=== PATIENT | female | born 1930 | race Caucasian/White ===

== ENCOUNTER → 2016-11-17 | Outpatient (CLI) | payer MEDICARE, OTHER ==
[2015-10-25 14:00] VITALS: BP 122/58
[~2016-11-17] MED LIST: ACET325T21 PO; ACET500T68 PO; ALBU2.5V14 NEB; ALBU8.5H6 IH; BENADRYL; BENZ100C PO; CALC300T4 PO; CLIN300C86 PO; COLD EEZE; CRAN1CAP3 PO; CROM26SP NS; DIPH25CA58 PO; ESOM20CA PO; ESOM40CA25 PO; FISH12002 PO; FLEC100T PO; FLEC150T PO; FLUT16SP2 NS; GUAI12003 PO; MECL25TA3 PO; METAMUCIL425 GM PO; METO25TA4 PO; MULT-208 PO; NITR0.4T SL; OLOP2.5D OP; OMEG1CAP30 PO; PHEN1SUP75 RC; SALT177A NS; SIMV10TA3 PO; WARF1TAB7 PO; WARF6TAB PO
[2016-11-17 10:09] LABS: CREATININE 0.9 mg/dL (0.6-1.0); GFR 59.5; POTASSIUM 4.6 mmol/L (3.5-5.1)
== END | disposition home or self-care (01) ==
LOC: LAB 09:18
PROVIDERS: ATTEND Internal Medicine Cardiovascular Disease
DX: I48.0 Paroxysmal atrial fibrillation (principal)
CPT/HCPCS: 36415; 80048; 83735

== ENCOUNTER → 2016-12-25 | Outpatient (CLI) | payer MEDICARE, OTHER ==
[2015-10-25 14:00] VITALS: BP 122/58
[~2016-12-25] MED LIST changes: +CLIN300C8 PO; -CLIN300C86 PO
[2016-12-25 14:27] LABS: FREE T4 1.14 ng/dL (0.76-1.46); THYROID STIM HORMONE (TSH) 1.061 uIU/mL (0.358-3.740)
== END | disposition home or self-care (01) ==
LOC: SPEC 10:49
PROVIDERS: ATTEND Internal Medicine Cardiovascular Disease
DX: I48.0 Paroxysmal atrial fibrillation (principal)
CPT/HCPCS: 84439; 84443

== ENCOUNTER → 2016-12-30 | Outpatient (CLI) | payer MEDICARE, OTHER ==
[2015-10-25 14:00] VITALS: BP 122/58
== END | disposition home or self-care (01) ==
LOC: LAB 21:50
PROVIDERS: ATTEND Specialist
DX: I48.91 Unspecified atrial fibrillation (principal)
CPT/HCPCS: 36415; 85610

== ENCOUNTER → 2017-01-20 | Outpatient (CLI) | payer MEDICARE, OTHER ==
[2015-10-25 14:00] VITALS: BP 122/58
[2017-01-20 06:47] LABS: ALBUMIN 3.2 g/dL (3.4-5.0); ALBUMIN/GLOBULIN RATIO 0.9 (1.0-1.7); CALCIUM 8.7 mg/dL (8.5-10.1); CREATININE 0.8 mg/dL (0.6-1.0); GFR 68.2; POTASSIUM 4.4 mmol/L (3.5-5.1); TOTAL BILIRUBIN 0.6 mg/dL (0.2-1.0); TOTAL PROTEIN 6.9 g/dL (6.4-8.2)
== END | disposition home or self-care (01) ==
LOC: SPEC 06:18
PROVIDERS: ATTEND Specialist
DX: E63.9 Nutritional deficiency, unspecified (principal); R79.89 Other specified abnormal findings of blood chemistry; R94.6 Abnormal results of thyroid function studies
CPT/HCPCS: 36415; 80053; 80061

== ENCOUNTER → 2017-03-17 | Outpatient (CLI) | payer MEDICARE, OTHER ==
[2015-10-25 14:00] VITALS: BP 122/58
--- NOTE | 2017-03-18 10:53 | RAD ---
DATE: 03/17/2017 EXAM: MAMMO BRADLY SCREENING BILATERAL Bilateral digital screening mammography to include digital breast tomosynthesis (3D mammography) HISTORY: Screening study. COMPARISON: 01/13/2016 This study was interpreted with the benefit of Computerized Aided Detection (CAD). FINDINGS: Digital MLO and CC mammograms of both breasts were obtained. Additionally digital breast tomosynthesis (3D mammography) images of both breasts in the MLO and CC projections were performed. Comparison study is dated 01/13/2016. The breast parenchyma is heterogeneously dense which can obscure a lesion on mammography (breast density code C). No spiculated mass is seen. No malignant appearing calcification or area of architectural distortion is noted. Benign-appearing calcifications are seen within both breasts, unchanged. Digital breast tomosynthesis images demonstrate no spiculated mass or malignant appearing calcification. Since the previous examination there has been no significant interval change. IMPRESSION: BI-RADS Category 1, negative. There is no mammographic evidence of malignancy. Routine yearly screening mammography is recommended for follow-up. BI-RADS CATEGORY: 1 NEGATIVE RECOMMENDED FOLLOW-UP: 12M 12 MONTH FOLLOW-UP PQRS compliance statement: Patient information was entered into a reminder system with a target due date 03/17/2018 for the next mammogram. Mammography is a sensitive method for finding small breast cancers, but it does not detect them all and is not a substitute for careful clinical examination. A negative mammogram does not negate a clinically suspicious finding and should not result in delay in biopsying a clinically suspicious abnormality. "Our facility is accredited by the [employer] Mammography [employer]."
== END | disposition home or self-care (01) ==
LOC: MAMMO 07:41
PROVIDERS: ATTEND Specialist
DX: Z12.31 Encounter for screening mammogram for malignant neoplasm of breast (principal); Z00.00 Encounter for general adult medical examination without abnormal findings
CPT/HCPCS: 77063; G0202; 77067

== ENCOUNTER → 2018-03-29 | Outpatient (CLI) | payer MEDICARE, OTHER ==
[2015-10-25 14:00] VITALS: BP 122/58
[~2018-03-29] MED LIST changes: +WARF1TAB69 PO; -WARF1TAB7 PO
--- NOTE | 2018-03-29 10:00 | RAD ---
DATE: 03/29/2018 EXAM: DIGITAL SCREEN BILAT W/CAD HISTORY: Routine screening COMPARISON: 03/17/2017 This study was interpreted with the benefit of Computerized Aided Detection (CAD). The breast parenchyma is heterogeneously dense, which could reduce sensitivity of mammography. Breast parenchyma level C. FINDINGS: No new or enlarging breast densities are seen. Benign type calcifications are present. No suspicious microcalcifications have developed. IMPRESSION: Stable mammograms without evidence of malignancy. BI-RADS CATEGORY: 2 BENIGN FINDING(S) RECOMMENDED FOLLOW-UP: 12M 12 MONTH FOLLOW-UP PQRS compliance statement: Patient information was entered into a reminder system with a target due date for the next mammogram. Mammography is a sensitive method for finding small breast cancers, but it does not detect them all and is not a substitute for careful clinical examination. A negative mammogram does not negate a clinically suspicious finding and should not result in delay in biopsying a clinically suspicious abnormality. "Our facility is accredited by the [employer] Mammography [employer]."
== END | disposition home or self-care (01) ==
LOC: MAMMO 08:05
PROVIDERS: ATTEND Specialist
DX: Z12.31 Encounter for screening mammogram for malignant neoplasm of breast (principal); I11.0 Hypertensive heart disease with heart failure; I50.23 Acute on chronic systolic (congestive) heart failure; I48.0 Paroxysmal atrial fibrillation; E78.5 Hyperlipidemia, unspecified; E78.00 Pure hypercholesterolemia, unspecified; Z86.718 Personal history of other venous thrombosis and embolism; Z87.891 Personal history of nicotine dependence; Z88.0 Allergy status to penicillin; Z88.1 Allergy status to other antibiotic agents; Z88.8 Allergy status to other drugs, medicaments and biological substances; Z88.5 Allergy status to narcotic agent; Z88.6 Allergy status to analgesic agent; Z80.3 Family history of malignant neoplasm of breast; Z82.3 Family history of stroke
CPT/HCPCS: 77067

== ENCOUNTER 2018-06-08 12:27 | Emergency (ER) | payer MEDICARE, OTHER ==
[~2018-06-08] VITALS: Ht 165.1 cm; Wt 80.9 kg
--- NOTE | 2018-06-08 12:57 | EKG ---
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
[2018-06-08 13:32] LABS: BASO % 0 % (0-3); EOS # 0.1 x10^3/uL (0.0-0.7); EOS % 1 % (0-3); HEMATOCRIT 45.3 % (36.0-47.0); HEMOGLOBIN 14.9 g/dL (12.0-15.5); LYMPH # 1.7 x10^3/uL (1.0-4.8); LYMPH % 24 % (24-48); MEAN CORPUSCULAR HEMOGLOBIN 27 pg (25-35); MEAN CORPUSCULAR HGB CONC 33 g/dL (31-37); MEAN CORPUSCULAR VOLUME 83 fL (79-100); MONO # 0.9 x10^3/uL (0.0-1.1); MONO % 12 % (0-9); NEUT # 4.4 x10^3uL (1.8-7.7); NEUT % 62 % (31-73); PLATELET COUNT 302 x10^3/uL (140-400); RED BLOOD COUNT 5.46 x10^6/uL (3.50-5.40); RED CELL DISTRIBUTION WIDTH 14.6 % (11.5-14.5); WHITE BLOOD COUNT 7.1 x10^3/uL (4.0-11.0)
[2018-06-08 14:09] LABS: ALBUMIN/GLOBULIN RATIO 0.8 (1.0-1.7); CALCIUM 8.9 mg/dL (8.5-10.1); GFR 52.6; POTASSIUM 4.1 mmol/L (3.5-5.1); TOTAL BILIRUBIN 0.5 mg/dL (0.2-1.0); TOTAL PROTEIN 6.7 g/dL (6.4-8.2)
--- NOTE | 2018-06-08 14:34 | PHYS DOC ---
Past History Past Medical History: A-Fib, CHF, DVT, GERD, Heart Disease, URI, Other Past Surgical History: Other Alcohol Use: None Drug Use: None Adult General Chief Complaint Chief Complaint: RAPID HEART RATE HPI HPI Patient is a 87 year old female with history of atrial fibrillation who presents with complaining of rapid heart rate started on his prior to arrival. Patient complaining of nausea and mild dizziness without chest pain or shortness of breath like her previous episodes of atrial fibrillation. Patient states she was seen by her grill attendant yesterday and change of her metoprolol and didn't take any today. Patient states she had 50 mg Toprol prior to arrival to ER. She denies recent dehydration, vomiting, fever and chills, cough and congestion. Review of Systems Review of Systems Constitutional: Denies fever or chills [] Eyes: Denies change in visual acuity, redness, or eye pain [] HENT: Denies nasal congestion or sore throat [] Respiratory: Denies cough or shortness of breath [] Cardiovascular: No additional information not addressed in HPI [] GI: Denies abdominal pain, nausea, vomiting, bloody stools or diarrhea [] : Denies dysuria or hematuria [] Musculoskeletal: Denies back pain or joint pain [] Integument: Denies rash or skin lesions [] Neurologic: Denies headache, focal weakness or sensory changes [] Endocrine: Denies polyuria or polydipsia [] All other systems were reviewed and found to be within normal limits, except as documented in this note. Allergies Allergies Allergies Coded Allergies Type Severity Reaction Last Updated Verified Penicillins Allergy Severe Hives 10/18/15 Yes Iodinated Contrast- Oral and IV Dye Allergy Intermediate Hives 10/18/15 Yes alendronate sodium Allergy Intermediate 10/21/15 No atenolol Allergy Intermediate 07/06/14 No diltiazem Allergy Intermediate Rash 10/18/15 Yes dronedarone Allergy Intermediate 10/21/15 No erythromycin base Allergy Intermediate Rash 10/18/15 No fluticasone Allergy Intermediate 10/21/15 No indomethacin Allergy Intermediate 10/21/15 No nebivolol Allergy Intermediate 07/06/14 No ondansetron Allergy Intermediate 10/21/15 No salmeterol Allergy Intermediate 10/21/15 No tetracycline Allergy Intermediate Rash 10/18/15 No zolpidem Allergy Intermediate 10/21/15 No amiodarone Adverse Reaction Intermediate 10/21/15 No aspirin Adverse Reaction Intermediate 10/21/15 No Uncoded Allergies Type Severity Reaction Last Updated Verified onions Allergy Unknown 07/06/14 Physical Exam Physical Exam Constitutional: Well developed, well nourished, mild distress, non-toxic appearance. [] HENT: Normocephalic, atraumatic Eyes: PERRLA, EOMI, conjunctiva normal, no discharge. [] Neck: Normal range of motion, no tenderness, supple, no stridor. [] Cardiovascular: Irregularly irregular rhythm with tachycardia, no murmur [] Lungs & Thorax: Bilateral breath sounds clear to auscultation [] Abdomen: Bowel sounds normal, soft, no tenderness, no masses, no pulsatile masses. [] Skin: Warm, dry, no erythema, no rash. [] Back: No tenderness, no CVA tenderness. [] Extremities: No tenderness, no cyanosis, no clubbing, ROM intact, no edema. [] Neurologic: Alert and oriented X 3, normal motor function, normal sensory function, no focal deficits noted. [] Psychologic: Affect normal, judgement normal, mood normal. [] Current Patient Data Vital Signs Vital Signs Date Time Temp Pulse Resp B/P (MAP) Pulse Ox O2 Delivery O2 Flow Rate FiO2 06/08/18 13:25 86 18 145/64 (91) 94 Room Air 06/08/18 12:42 97.8 Lab Results Laboratory Tests Test 06/08/18 13:05 06/08/18 13:34 White Blood Count 7.1 x10^3/uL (4.0-11.0) Red Blood Count 5.46 x10^6/uL (3.50-5.40) H Hemoglobin 14.9 g/dL (12.0-15.5) Hematocrit 45.3 % (36.0-47.0) Mean Corpuscular Volume 83 fL (79-100) Mean Corpuscular Hemoglobin 27 pg (25-35) Mean Corpuscular Hemoglobin Concent 33 g/dL (31-37) Red Cell Distribution Width 14.6 % (11.5-14.5) H Platelet Count 302 x10^3/uL (140-400) Neutrophils (%) (Auto) 62 % (31-73) Lymphocytes (%) (Auto) 24 % (24-48) Monocytes (%) (Auto) 12 % (0-9) H Eosinophils (%) (Auto) 1 % (0-3) Basophils (%) (Auto) 0 % (0-3) Neutrophils # (Auto) 4.4 x10^3uL (1.8-7.7) Lymphocytes # (Auto) 1.7 x10^3/uL (1.0-4.8) Monocytes # (Auto) 0.9 x10^3/uL (0.0-1.1) Eosinophils # (Auto) 0.1 x10^3/uL (0.0-0.7) Basophils # (Auto) 0.0 x10^3/uL (0.0-0.2) Prothrombin Time 23.8 SEC (9.4-11.4) H Prothrombin Time INR 2.5 (0.9-1.1) H Troponin I Quantitative < 0.017 ng/mL (0-0.055) Sodium Level 136 mmol/L (136-145) Potassium Level 4.1 mmol/L (3.5-5.1) Chloride Level 101 mmol/L (98-107) Carbon Dioxide Level 27 mmol/L (21-32) Anion Gap 8 (6-14) Blood Urea Nitrogen 21 mg/dL (7-20) H Creatinine 1.0 mg/dL (0.6-1.0) Estimated GFR (Cockcroft-Gault) 52.6 BUN/Creatinine Ratio 21 (6-20) H Glucose Level 106 mg/dL (70-99) H Calcium Level 8.9 mg/dL (8.5-10.1) Total Bilirubin 0.5 mg/dL (0.2-1.0) Aspartate Amino Transferase (AST) 25 U/L (15-37) Alanine Aminotransferase (ALT) 24 U/L (14-59) Alkaline Phosphatase 85 U/L (46-116) GG-Vxw-K-Type Natriuretic Peptide 690 pg/mL (0-449) H Total Protein 6.7 g/dL (6.4-8.2) Albumin 3.0 g/dL (3.4-5.0) L Albumin/Globulin Ratio 0.8 (1.0-1.7) L EKG EKG EKG interpreted by me. EKG at 1241 showed atrial fibrillation with RVR at rate of 132, poor R-wave progress in lateral septal leads, no acute ST and T-wave abnormalities. Radiology/Procedures Radiology/Procedures [address] [address] IMAGING REPORT Signed PATIENT: RANCHO REMY ACCOUNT: [id number] : 1930 LOCATION: ER AGE: 87 SEX: F EXAM STATUS: REG ER ORD. PHYSICIAN: SHELLEY MARY MD REASON: palpitation PROCEDURE: PORTABLE CHEST 1V Exam: AP portable chest History: Tachycardia for one day. Comparison: October 24, 2015. Findings: Cardiac silhouette appears within normal limits for size. Aortic atherosclerosis is seen. Right lung appears clear. No pneumothorax identified. There is thought to be enlarged left pericardial fat pad. Pulmonary vascular distribution is seen. Impression: 1. Pulmonary vascular congestion. Electronically signed by: Negro Quintanilla MD (06/08/2018 2:33 PM) [place] [id number] DICTATED AND SIGNED BY: NEGRO QUINTANILLA MD DATE: 06/08/18 1431 CC: SHELLEY MARY MD; DANUTA PANCHAL MD ~ Course & Med Decision Making Course & Med Decision Making Pertinent Labs and Imaging studies reviewed. (See chart for details) Evaluation of patient in ER showed 87-year-old female patient with history of atrial fibrillation and complaining of palpitation. Patient had atrial flutter patient with RVR at rate of 127 at arrival to ER that is spontaneously converted to sinus rhythm at rate of 80s. Labs did not show any acute finding. Patient psychiatric to follow up with her grill attendant and take her home medication and in case of palpitation take one extra pill of metoprolol. Dragon Disclaimer Dragon Disclaimer This electronic medical record was generated, in whole or in part, using a voice recognition dictation system. Departure Departure: Impression: Primary Impression: Atrial fibrillation with RVR Disposition: HOME, SELF-CARE (at 1433) Referrals: DANUTA PANCHAL MD (PCP) Patient Instructions: Atrial Fibrillation Additional Instructions: Continue home medication If having palpitation may take one extra pill of metoprolol Follow-up with your primary care physician in 3-5 days Return to ER if not getting better SHELLEY MARY MD Jun 08, 2018 14:34
[2018-06-08 14:54] VITALS: BP 144/78
== END 2018-06-08 14:56 | disposition home or self-care (01) ==
LOC: ER 12:27
DX: I48.0 Paroxysmal atrial fibrillation (principal); I50.9 Heart failure, unspecified; K21.9 Gastro-esophageal reflux disease without esophagitis; Z86.718 Personal history of other venous thrombosis and embolism; Z88.0 Allergy status to penicillin; Z91.041 Radiographic dye allergy status; Z88.8 Allergy status to other drugs, medicaments and biological substances; Z88.6 Allergy status to analgesic agent; Z88.1 Allergy status to other antibiotic agents
CPT/HCPCS: 36415; 71045; 80053; 83880; 84484; 85025; 85610; 93005; 99285

== ENCOUNTER 2018-10-10 15:44 | Emergency (ER) | payer MEDICARE, OTHER ==
[~2018-10-10] VITALS: Ht 165.1 cm; Wt 81.6 kg
[2018-10-10 16:29] LABS: BASO # 0.1 x10^3/uL (0.0-0.2); BASO % 1 % (0-3); EOS # 0.1 x10^3/uL (0.0-0.7); EOS % 2 % (0-3); HEMATOCRIT 43.6 % (36.0-47.0); HEMOGLOBIN 14.1 g/dL (12.0-15.5); LYMPH # 1.9 x10^3/uL (1.0-4.8); LYMPH % 29 % (24-48); MEAN CORPUSCULAR HEMOGLOBIN 26 pg (25-35); MEAN CORPUSCULAR HGB CONC 32 g/dL (31-37); MEAN CORPUSCULAR VOLUME 82 fL (79-100); MONO # 0.8 x10^3/uL (0.0-1.1); MONO % 11 % (0-9); NEUT # 3.8 x10^3uL (1.8-7.7); NEUT % 57 % (31-73); PLATELET COUNT 280 x10^3/uL (140-400); RED BLOOD COUNT 5.35 x10^6/uL (3.50-5.40); RED CELL DISTRIBUTION WIDTH 14.4 % (11.5-14.5); WHITE BLOOD COUNT 6.7 x10^3/uL (4.0-11.0)
--- NOTE | 2018-10-10 16:30 | PHYS DOC ---
Past History Past Medical History: A-Fib, CHF, DVT, GERD, Heart Disease, URI, Other Past Surgical History: Other Alcohol Use: None Drug Use: None Adult General Chief Complaint Chief Complaint: RAPID HEART RATE HPI HPI 87-year-old female presents with palpitations. Patient has known atrial fibrillation. When she has uncontrolled rate, she can feel it. The patient has a plan where she takes 25 mg of metoprolol when her A. fib starts. In one hour 8 usually goes back to normal. The patient followed this protocol today, but after an hour she had not slowed down. Her PCP advised that she come to the emergency room. On arrival to the emergency room the patient's heart rate had slowed to 86 and was sinus. The patient is feeling better at this time. She denies previously feeling ill for her A. fib started. She has no other complaints. Review of Systems Review of Systems Constitutional: Denies fever or chills [] Eyes: Denies change in visual acuity, redness, or eye pain [] HENT: Denies nasal congestion or sore throat [] Respiratory: Denies cough or shortness of breath [] Cardiovascular: No additional information not addressed in HPI [] GI: Denies abdominal pain, nausea, vomiting, bloody stools or diarrhea [] : Denies dysuria or hematuria [] Musculoskeletal: Denies back pain or joint pain [] Integument: Denies rash or skin lesions [] Neurologic: Denies headache, focal weakness or sensory changes [] Endocrine: Denies polyuria or polydipsia [] All other systems were reviewed and found to be within normal limits, except as documented in this note. Allergies Allergies Allergies Coded Allergies Type Severity Reaction Last Updated Verified Penicillins Allergy Severe Hives 10/18/15 Yes Iodinated Contrast- Oral and IV Dye Allergy Intermediate Hives 10/18/15 Yes alendronate sodium Allergy Intermediate 10/21/15 No atenolol Allergy Intermediate 07/06/14 No diltiazem Allergy Intermediate Rash 10/18/15 Yes dronedarone Allergy Intermediate 10/21/15 No erythromycin base Allergy Intermediate Rash 10/18/15 No fluticasone Allergy Intermediate 10/21/15 No indomethacin Allergy Intermediate 10/21/15 No nebivolol Allergy Intermediate 07/06/14 No ondansetron Allergy Intermediate 10/21/15 No salmeterol Allergy Intermediate 10/21/15 No tetracycline Allergy Intermediate Rash 10/18/15 No zolpidem Allergy Intermediate 10/21/15 No Sulfa (Sulfonamide Antibiotics) Allergy Unknown 10/10/18 Yes hydrochlorothiazide Allergy Unknown 10/10/18 Yes lansoprazole Allergy Unknown 10/10/18 Yes risedronate sodium Allergy Unknown 10/10/18 Yes amiodarone Adverse Reaction Intermediate 10/21/15 No aspirin Adverse Reaction Intermediate 10/21/15 No Uncoded Allergies Type Severity Reaction Last Updated Verified ZEPHREX Allergy Unknown 10/10/18 onions Allergy Unknown 07/06/14 Physical Exam Physical Exam Constitutional: Well developed, well nourished, no acute distress, non-toxic appearance. [] HENT: Normocephalic, atraumatic, bilateral external ears normal, oropharynx moist, no oral exudates, nose normal. [] Eyes: PERRLA, EOMI, conjunctiva normal, no discharge. [] Neck: Normal range of motion, no tenderness, supple, no stridor. [] Cardiovascular:Heart rate regular rhythm, no murmur [] Lungs & Thorax: Bilateral breath sounds clear to auscultation [] Abdomen: Bowel sounds normal, soft, no tenderness, no masses, no pulsatile masses. [] Skin: Warm, dry, no erythema, no rash. [] Back: No tenderness, no CVA tenderness. [] Extremities: No tenderness, no cyanosis, no clubbing, ROM intact, no edema. [] Neurologic: Alert and oriented X 3, normal motor function, normal sensory function, no focal deficits noted. [] Psychologic: Affect normal, judgement normal, mood normal. [] EKG EKG Sinus rhythm, rate 86, prolonged PA interval, no ST elevations or depressions.[] Radiology/Procedures Radiology/Procedures [] Course & Med Decision Making Course & Med Decision Making Pertinent Labs and Imaging studies reviewed. (See chart for details) The patient is a prolonged PA interval but her EKG is otherwise unremarkable. She is in sinus rhythm. I will order labs to rule out infection as a trigger for her A. fib. The patient's urinalysis is negative for nitrate and only trace for leukocyte esterase. She does have many bacteria but few white cells. The patient is asymptomatic. I will not treat her for UTI. Her heart rate is maintained sinus rhythm. She is stable for discharge at this time. [] Dragon Disclaimer Dragon Disclaimer This electronic medical record was generated, in whole or in part, using a voice recognition dictation system. Departure Departure: Impression: Primary Impression: Atrial fibrillation with RVR Disposition: HOME, SELF-CARE Condition: STABLE Referrals: DANUTA PANCHAL MD (PCP) Patient Instructions: Atrial Fibrillation, [id number] LORRAINE RICCI DO Oct 10, 2018 16:30
[2018-10-10 17:20] LABS: ALBUMIN 3.1 g/dL (3.4-5.0); ALBUMIN/GLOBULIN RATIO 0.8 (1.0-1.7); CALCIUM 9.1 mg/dL (8.5-10.1); CREATININE 1.1 mg/dL (0.6-1.0); GFR 47.1; POTASSIUM 4.7 mmol/L (3.5-5.1); TOTAL BILIRUBIN 0.4 mg/dL (0.2-1.0)
[2018-10-10 17:30] LABS: BILIRUBIN,URINE NEG (NEG); CLARITY,URINE CLEAR; COLOR,URINE YELLOW; GLUCOSE,URINE NEG (NEG)
[2018-10-10 17:31] LABS: BACTERIA,URINE MANY /HPF (0-FEW); NITRITE,URINE NEG (NEG); RBC,URINE RARE /HPF (0-2); UROBILINOGEN,URINE 0.2 mg/dL (0.2 mg/dL)
[2018-10-10 17:51] VITALS: BP 157/62
--- NOTE | 2018-10-11 12:33 | EKG ---
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
== END 2018-10-10 17:55 | disposition home or self-care (01) ==
LOC: ER 15:44
DX: I48.2 Chronic atrial fibrillation (principal); I50.9 Heart failure, unspecified; K21.9 Gastro-esophageal reflux disease without esophagitis; Z86.718 Personal history of other venous thrombosis and embolism; Z91.041 Radiographic dye allergy status; Z88.0 Allergy status to penicillin; Z88.2 Allergy status to sulfonamides; Z88.8 Allergy status to other drugs, medicaments and biological substances; Z88.6 Allergy status to analgesic agent; Z88.1 Allergy status to other antibiotic agents
CPT/HCPCS: 36415; 80053; 81001; 85025; 87086; 87186; 93005; 99284

== ENCOUNTER 2018-11-11 15:13 | Inpatient (IN) | payer MEDICARE, OTHER ==
[~2018-11-11] VITALS: Ht 165.1 cm; Wt 83.1 kg
[2018-11-11] MEDS ORDERED: METOPROLOL TARTRATE 5 MG/5 ML VIAL. IV ONE ×3 (15:30→16:15)
--- NOTE | 2018-11-11 15:44 | PHYS DOC ---
Past History Past Medical History: A-Fib, CHF, DVT, GERD, High Cholesterol, Other Past Surgical History: Other Alcohol Use: None Drug Use: None Adult General Chief Complaint Chief Complaint: RAPID HEART RATE HPI HPI 88-year-old female presents with rapid heart beat. Patient has known atrial fibrillation which is controlled with beta yann. Around 1300 today, she began to feel that she had rapid heartbeat. She has been told to take extra dose of her metoprolol when this happens. She didn't do this, but her heart rate is not slow down. She took this dose at least 1 hour prior to arrival. She denies chest pain or shortness of breath. She has no other complaints at this time. Review of Systems Review of Systems Constitutional: Denies fever or chills [] Eyes: Denies change in visual acuity, redness, or eye pain [] HENT: Denies nasal congestion or sore throat [] Respiratory: Denies cough or shortness of breath [] Cardiovascular: No additional information not addressed in HPI [] GI: Denies abdominal pain, nausea, vomiting, bloody stools or diarrhea [] : Denies dysuria or hematuria [] Musculoskeletal: Denies back pain or joint pain [] Integument: Denies rash or skin lesions [] Neurologic: Denies headache, focal weakness or sensory changes [] Endocrine: Denies polyuria or polydipsia [] All other systems were reviewed and found to be within normal limits, except as documented in this note. Current Medications Current Medications Current Medications Medications (Trade) Dose Ordered Sig/Rose Start Time Stop Time Status Last Admin Dose Admin Metoprolol Tartrate (Lopressor Vial) 5 mg 1X ONCE 11/11/18 15:30 11/11/18 15:31 DC 11/11/18 15:35 5 MG Allergies Allergies Allergies Coded Allergies Type Severity Reaction Last Updated Verified Penicillins Allergy Severe Hives 10/18/15 Yes Iodinated Contrast- Oral and IV Dye Allergy Intermediate Hives 10/18/15 Yes Sulfa (Sulfonamide Antibiotics) Allergy Intermediate 10/10/18 Yes alendronate sodium Allergy Intermediate 10/21/15 No atenolol Allergy Intermediate 07/06/14 No diltiazem Allergy Intermediate Rash 10/18/15 Yes dronedarone Allergy Intermediate 10/21/15 No erythromycin base Allergy Intermediate Rash 10/18/15 No fluticasone Allergy Intermediate 10/21/15 No hydrochlorothiazide Allergy Intermediate 10/10/18 Yes indomethacin Allergy Intermediate 10/21/15 No lansoprazole Allergy Intermediate 10/10/18 Yes nebivolol Allergy Intermediate 07/06/14 No ondansetron Allergy Intermediate 10/21/15 No risedronate sodium Allergy Intermediate 10/10/18 Yes salmeterol Allergy Intermediate 10/21/15 No tetracycline Allergy Intermediate Rash 10/18/15 No zolpidem Allergy Intermediate 10/21/15 No amiodarone Adverse Reaction Intermediate 10/21/15 No aspirin Adverse Reaction Intermediate 10/21/15 No Uncoded Allergies Type Severity Reaction Last Updated Verified ZEPHREX Allergy Unknown 10/10/18 onions Allergy Unknown 07/06/14 Physical Exam Physical Exam Constitutional: Well developed, well nourished, no acute distress, non-toxic appearance. [] HENT: Normocephalic, atraumatic, bilateral external ears normal, oropharynx moist, no oral exudates, nose normal. [] Eyes: PERRLA, EOMI, conjunctiva normal, no discharge. [] Neck: Normal range of motion, no tenderness, supple, no stridor. [] Cardiovascular:Heart rate 149, irregular rhythm, no murmur [] Lungs & Thorax: Bilateral breath sounds clear to auscultation [] Abdomen: Bowel sounds normal, soft, no tenderness, no masses, no pulsatile masses. [] Skin: Warm, dry, no erythema, no rash. [] Back: No tenderness, no CVA tenderness. [] Extremities: No tenderness, no cyanosis, no clubbing, ROM intact, no edema. [] Neurologic: Alert and oriented X 3, normal motor function, normal sensory function, no focal deficits noted. [] Psychologic: Affect normal, judgement normal, mood normal. [] Current Patient Data Vital Signs Vital Signs Date Time Temp Pulse Resp B/P (MAP) Pulse Ox O2 Delivery O2 Flow Rate FiO2 11/11/18 15:35 145 137/84 11/11/18 15:26 97.6 22 96 Room Air EKG EKG Atrial fibrillation, rate 145, normal axis, no ST elevations or depressions.[] Radiology/Procedures Radiology/Procedures [] Impressions: CHEST AP ONLY History: TACHYCARDIA. Comparison with June 08, 2018 Heart size is enlarged, stable. No evidence of pneumothorax or pleural effusion. Blunting of the left costophrenic angle is again identified and there may be some volume loss of the left lung base also appears unchanged. No evidence of infiltrate. Regional skeleton appears intact. IMPRESSION: Stable exam. No evidence of consolidating infiltrate. Electronically signed by: Negro Norris MD (11/11/2018 3:46 PM) [id number] DICTATED AND SIGNED BY: NEGRO NORRIS MD DATE: 11/11/18 1546 CC: LORRAINE RICCI DO; DANUTA PANCHAL MD ~ Course & Med Decision Making Course & Med Decision Making Pertinent Labs and Imaging studies reviewed. (See chart for details) Patient's labs are unremarkable except for an elevated glucose. Her EKG shows a regular rhythm with a rate of 149. Her troponin is negative. Her chest x-ray is negative for acute findings. The patient has been given 3 doses of 5 mg of metoprolol IV. She continues to have a heart rate of 140. The patient is reportedly allergic to Cardizem. I discussed the patient with Dr. Henning and he has agreed to admit the patient. He has requested that I load the patient with digoxin. Given her decreased GFR I will only give her 500 mg by mouth. Patient is in agreement with admission. [] Dragon Disclaimer Dragon Disclaimer This electronic medical record was generated, in whole or in part, using a voice recognition dictation system. Departure Departure: Impression: Primary Impression: Atrial fibrillation with RVR Disposition: ADMITTED INPATIENT Condition: STABLE Referrals: DANUTA PANCHAL MD (PCP) LORRAINE RICCI DO Nov 11, 2018 15:44
--- NOTE | 2018-11-11 15:49 | RAD ---
CHEST AP ONLY History: TACHYCARDIA. Comparison with June 08, 2018 Heart size is enlarged, stable. No evidence of pneumothorax or pleural effusion. Blunting of the left costophrenic angle is again identified and there may be some volume loss of the left lung base also appears unchanged. No evidence of infiltrate. Regional skeleton appears intact. IMPRESSION: Stable exam. No evidence of consolidating infiltrate. Electronically signed by: Negro Norris MD (11/11/2018 3:46 PM) [facility]
[2018-11-11 16:04] LABS: BASO # 0.1 x10^3/uL (0.0-0.2); BASO % 1 % (0-3); EOS # 0.1 x10^3/uL (0.0-0.7); EOS % 2 % (0-3); HEMATOCRIT 45.9 % (36.0-47.0); HEMOGLOBIN 14.9 g/dL (12.0-15.5); LYMPH # 2.1 x10^3/uL (1.0-4.8); LYMPH % 28 % (24-48); MEAN CORPUSCULAR HEMOGLOBIN 27 pg (25-35); MEAN CORPUSCULAR HGB CONC 33 g/dL (31-37); MEAN CORPUSCULAR VOLUME 82 fL (79-100); MONO # 0.9 x10^3/uL (0.0-1.1); MONO % 12 % (0-9); NEUT # 4.3 x10^3uL (1.8-7.7); NEUT % 57 % (31-73); PLATELET COUNT 296 x10^3/uL (140-400); RED BLOOD COUNT 5.62 x10^6/uL (3.50-5.40); RED CELL DISTRIBUTION WIDTH 14.7 % (11.5-14.5); WHITE BLOOD COUNT 7.6 x10^3/uL (4.0-11.0)
[2018-11-11 16:20] LABS: ALBUMIN 3.2 g/dL (3.4-5.0); ALBUMIN/GLOBULIN RATIO 0.8 (1.0-1.7); CALCIUM 8.8 mg/dL (8.5-10.1); CREATININE 1.1 mg/dL (0.6-1.0); POTASSIUM 3.8 mmol/L (3.5-5.1); TOTAL BILIRUBIN 0.5 mg/dL (0.2-1.0); TOTAL PROTEIN 7.2 g/dL (6.4-8.2)
[2018-11-11] MEDS ORDERED: DIGOXIN 125 MCG TABLET PO ONE (17:15)
[2018-11-11 18:43] VITALS: BP 90/80
[2018-11-11 19:36] VITALS: BP 116/72
[2018-11-11 22:38] VITALS: BP 108/64
[2018-11-11 23:30] VITALS: BP 109/64
[2018-11-12] VITALS (8 sets, daily range): BP systolic 111–140; BP diastolic 55–90
[2018-11-12 05:34] LABS: DIG 1.1 ng/dL (0.9-2.0)
[2018-11-12] MEDS ORDERED: BENZ100C PO (07:36)
[2018-11-12] MEDS ORDERED: SODI30SP NS (07:36)
[2018-11-12] MEDS ORDERED: ESOM20CA PO (07:36)
[2018-11-12] MEDS ORDERED: ALBU2.5V14 NEB (07:36)
[2018-11-12] MEDS ORDERED: SIMV10TA3 PO (07:36)
[2018-11-12] MEDS ORDERED: DOFE250C PO (07:36)
[2018-11-12] MEDS ORDERED: SPIR25TA5 PO (07:36)
[2018-11-12] MEDS ORDERED: METO-239 PO (07:36)
[2018-11-12] MEDS ORDERED: FURO20TA3 PO (07:36)
[2018-11-12] MEDS ORDERED: POTA10TA10 PO (07:36)
[2018-11-12] MEDS ORDERED: OMEG1CAP50 PO (07:36)
[2018-11-12] MEDS ORDERED: FLUT9.9S NS (07:49)
[2018-11-12] MEDS ORDERED: MULT1TAB52 PO (08:07)
[2018-11-12] MEDS ORDERED: CRAN500T2 PO (08:07)
[2018-11-12] MEDS ORDERED: WARF-31 PO ×2 (08:07)
[2018-11-12] MEDS ORDERED: CALC300T4 PO (08:07)
[2018-11-12] MEDS ORDERED: METO-247 PO (08:07)
[2018-11-12] MEDS ORDERED: METO50TA29 PO (08:07)
[2018-11-12] MEDS ORDERED: DIME50TA10 PO (08:07)
[2018-11-12] MEDS ORDERED: CRAN200C2 PO (08:07)
[2018-11-12] MEDS ORDERED: diphenhydrAMINE HCL 25 MG CAPSULE PO PRN (12:15)
[2018-11-12] MEDS ORDERED: FUROSEMIDE 20 MG TABLET PO SCH (12:15)
[2018-11-12] MEDS ORDERED: BENZONATATE 100 MG CAPSULE. PO PRN ×2 (12:15→12:45)
[2018-11-12] MEDS ORDERED: NON FORMULARY ITEM (Albuterol Sulfate (Albuterol Sulfate Conc Neb Soln) 1 VIAL) NEB PRN (12:15)
[2018-11-12] MEDS ORDERED: NON FORMULARY ITEM (Warfarin Sodium 5 MG) PO SCH (12:15)
[2018-11-12] MEDS ORDERED: ACETAMINOPHEN 500 MG TABLET PO PRN (12:15)
[2018-11-12] MEDS ORDERED: METOPROLOL SUCC 24HR ER 25 MG TAB.ER.24H. PO SCH (12:15)
[2018-11-12] MEDS ORDERED: POTASSIUM CHLORIDE 10 MEQ TABLET.ER. PO PRN (12:15)
[2018-11-12] MEDS ORDERED: dimenhyDRINATE 50 MG TABLET PO PRN (12:15)
[2018-11-12] MEDS ORDERED: SODIUM CHLORIDE 0.65% NASAL SPRAY 45ML BOTTLE. NS PRN ×2 (12:30→16:07)
[2018-11-12] MEDS: METOPROLOL SUCC 24HR ER 50 MG TAB.ER.24H. PO SCH (12:43)
[2018-11-12 12:55] LABS: CALCIUM 8.8 mg/dL (8.5-10.1); GFR 52.4; POTASSIUM 4.2 mmol/L (3.5-5.1)
[2018-11-12] MEDS ORDERED: ALBUTEROL SULFATE 2.5 MG/3 ML NEBU. NEB PRN (13:30)
--- NOTE | 2018-11-12 14:54 | PDOC2 ---
CONSULT Date of Admission DATE: 11/12/18 TIME: 14:46 Reason for Consult: rapid atrial fibrillation Referring Physician: Dr. Henning Chief Complaint Rapid heart rate Source: Chart review, Patient Problem List Problems Medical Problems: (1) Atrial fibrillation with RVR Status: Acute History of Present Illness The patient is an 88-year-old female who went to the emergency room last evening due to episodes of rapid heart rate. She was evaluated and found to be in atrial fibrillation with a rate of approximately 150 bpm. The patient has a long history of atrial fibrillation and history with T casserian and metoprolol for rate control. She is also on Coumadin. She was initially treated with elevated dosing of beta blockers and also was given digoxin. This morning her rate is improved but still elevated at 124 bpm. She appears comfortable this morning. Chest x-ray has shown no acute changes. She has been continued on her other baseline medications. Cardiovascular: AFIB, CHF, HTN, hyperipidemia Pulmonary: Other GI: GERD Renal/: Chronic renal insuff Past Surgical History: Other (distant surgical repair of a pectus excavatum ) Family History: Hypertension Smoke: No ALCOHOL: none Current Medications Current Medications Metoprolol Tartrate (Lopressor Vial) 5 mg 1X ONCE IV Last administered on at 15:35; Start 11/11/18 at 15:30; Stop 11/11/18 at 15:31; Status DC Metoprolol Tartrate (Lopressor Vial) 5 mg 1X ONCE IV Last administered on at 16:00; Start 11/11/18 at 16:00; Stop 11/11/18 at 16:01; Status DC Metoprolol Tartrate (Lopressor Vial) 5 mg 1X ONCE IV Last administered on at 16:26; Start 11/11/18 at 16:15; Stop 11/11/18 at 16:16; Status DC Digoxin (Lanoxin) 500 mcg 1X ONCE PO Last administered on 11/11/18at 17:15; Start 11/11/18 at 17:15; Stop 11/11/18 at 17:16; Status DC Cromolyn Sodium (Nasalcrom) 1 spray DAILY NS ; Start 11/13/18 at 09:00 Dimenhydrinate (Dramamine) 50 mg PRN DAILY PRN PO DIZZINESS; Start 11/12/18 at 12:15 Diphenhydramine HCl (Benadryl) 25 mg QHS PRN PO INSOMNIA; Start 11/12/18 at 12: 15 Dofetilide (Tikosyn) 250 mcg BID PO ; Start 11/12/18 at 21:00 Furosemide (Lasix) 20 mg PRN DAILY PO ; Start 11/12/18 at 12:15 Metoprolol Succinate (Toprol Xl) 25 mg PRN DAILY PO ; Start 11/12/18 at 12:15 Fish Oil (Fish Oil) 1,000 mg DAILY PO ; Start 11/13/18 at 09:00 Simvastatin (Zocor) 10 mg HS PO ; Start 11/12/18 at 21:00 Acetaminophen (Tylenol) 500 mg HS PRN PO .; Start 11/12/18 at 12:15 Non-Formulary Medication (Albuterol Sulfate (Albuterol Sulfate Conc Neb Soln)) 1 vial PRN PRN NEB SHORTNESS OF BREATH; Start 11/12/18 at 12:15; Status UNV Benzonatate (Tessalon Perle) 1 mg PRN Q6HRS PRN PO COUGH; Start 11/12/18 at 12: 15; Stop 11/12/18 at 12:44; Status DC Non-Formulary Medication (Cranberry Extract (Cranberry)) 500 mg DAILYWBKFT PO ; Start 11/13/18 at 08:00; Status UNV Pantoprazole Sodium (Protonix) 40 mg DAILYAC PO ; Start 11/13/18 at 07:30 Fluticasone Propionate (Flonase) 2 spray DAILY NS ; Start 11/13/18 at 09:00 Metoprolol Succinate (Toprol Xl) 75 mg DAILYWBKFT PO ; Start 11/13/18 at 08:00; Stop 11/13/18 at 08:00; Status DC Metoprolol Succinate (Toprol Xl) 100 mg QHS PO ; Start 11/12/18 at 21:00 Multivitamins/ Calcium (Thera-M Plus) 1 tab DAILY PO ; Start 11/13/18 at 09:00 Potassium Chloride (Klor-Con) 10 meq PRN DAILY PRN PO HYPOKALEMIA; Start at 12:15 Sodium Chloride (Saline Mist Nasal) 1 nieves PRN Q1HR PRN NS NASAL CONGESTION; Start 11/12/18 at 12:30 Spironolactone (Aldactone) 12.5 mg DAILY PO ; Start 11/13/18 at 09:00 Non-Formulary Medication (Warfarin Sodium ) 5 mg qod PO ; Start 11/12/18 at 12:15 ; Status UNV Warfarin Sodium (Coumadin) 2.5 mg Q48H ONCE PO ; Start 11/12/18 at 16:00; Stop 11/12/18 at 16:00; Status DC Metoprolol Succinate (Toprol Xl) 75 mg DAILYWBKFT PO Last administered on at 12:43; Start 11/12/18 at 12:30 Benzonatate (Tessalon Perle) 100 mg PRN Q6HRS PRN PO COUGH; Start 11/12/18 at 12 :45 Warfarin Sodium (Coumadin) 3 mg Q48H PO ; Start 11/12/18 at 16:00 Warfarin Sodium (Coumadin) 2.5 mg Q48H PO ; Start 11/12/18 at 16:00 Warfarin Sodium (Coumadin) 5 mg Q48H PO ; Start 11/13/18 at 16:00 Warfarin Sodium (Coumadin Per Physician) 1 each PRN DAILY PRN MC SEE COMMENTS; Start 11/12/18 at 13:30 Albuterol Sulfate (Ventolin) 2.5 mg PRN Q6HRS PRN NEB SHORTNESS OF BREATH; Start 11/12/18 at 13:30 Active Scripts Active Reported Metoprolol Succinate ( Xl ) (Metoprolol Succinate) 100 Mg Tab.er.24h 1 Tab PO HS Multivitamins (Multivitamin) 1 Each Tablet 1 Tab PO DAILY Dimenhydrinate 50 Mg Tablet 50 Mg PO PRN DAILY Cranberry (Cranberry Extract) 500 Mg Tablet 500 Mg PO DAILYWBKFT Warfarin Sodium 5 Mg Tablet 5 Mg PO QOD Warfarin Sodium 5 Mg Tablet 5.5 Mg PO QODAY Cranberry (Cranberry Extract) 200 Mg Capsule 84 Mg PO HS Flonase Allergy Relief (Fluticasone Propionate) 9.9 Ml [place].susp 2 Sprays NS DAILY Metoprolol Succinate ( Xl ) (Metoprolol Succinate) 25 Mg Tab.er.24h 1 Tab PO PRN DAILY Albuterol Sulfate Conc Neb Soln (Albuterol Sulfate) 2.5 Mg/0.5 Ml Vial.neb 1 Vial NEB PRN PRN Fish Oil 1,000 Mg Softgel ([place]-3 Fatty Acids/Fish Oil) 1 Each Capsule 1 Each PO DAILY Spironolactone 25 Mg Tablet 12.5 Mg PO DAILY Nexium Capsule (Esomeprazole Magnesium) 20 Mg Capsule.dr 1 Cap PO DAILY Furosemide 20 Mg Tablet 1 Tab PO PRN DAILY Potassium Chloride 10 Meq Tablet.er 10 Meq PO PRN DAILY PRN Tikosyn (Dofetilide) 250 Mcg Capsule 250 Mcg PO BID Saline Nasal [place] (Sodium Chloride) 30 Ml [place] 1 Spr NS PRN PRN Tessalon Perle (Benzonatate) 100 Mg Capsule 1 Cap PO PRN Q6HRS PRN [cold eeze lozenge] PRN Simvastatin 10 Mg Tablet 10 Mg PO HS Pataday (Olopatadine Hcl) 2.5 Ml Drops 2.5 Ml OP PRN [place] Complete (Salt Irrigation Solution No.1) 177 Ml Aer.w.adap 177 Ml NS PRN [benadryl 1% cream] Preparation H Suppository (Phenylephrine Hcl/[place] Butter) 1 Each Supp.rect 1 Each RC Acetaminophen 500 Mg Tablet 500 Mg PO HS PRN Nasalcrom (Cromolyn Sodium) 26 Ml [place].pump 26 Ml NS Benadryl (Diphenhydramine Hcl) 25 Mg Capsule 25 Mg PO PRN Tums X-Str (Calcium Carbonate) 300 Mg Tab.chew 500 Mg PO PRN Metoprolol Succinate ( Xl ) (Metoprolol Succinate) 50 Mg Tab.er.24h 75 Mg PO DAILYWBKFT Allergies: Coded Allergies: Penicillins (Verified Allergy, Severe, Hives, 10/18/15) Iodinated Contrast- Oral and IV Dye (Verified Allergy, Intermediate, Hives , 10/18/15) Sulfa (Sulfonamide Antibiotics) (Verified Allergy, Intermediate, 10/10/18) alendronate sodium (Unverified Allergy, Intermediate, 10/21/15) atenolol (Unverified Allergy, Intermediate, 07/06/14) METOPROLOL IV OK diltiazem (Verified Allergy, Intermediate, Rash, 10/18/15) dronedarone (Unverified Allergy, Intermediate, 10/21/15) erythromycin base (Unverified Allergy, Intermediate, Rash, 10/18/15) fluticasone (Unverified Allergy, Intermediate, 10/21/15) hydrochlorothiazide (Verified Allergy, Intermediate, 10/10/18) indomethacin (Unverified Allergy, Intermediate, 10/21/15) lansoprazole (Verified Allergy, Intermediate, 10/10/18) nebivolol (Unverified Allergy, Intermediate, 07/06/14) METOPROLOL IV OK ondansetron (Unverified Allergy, Intermediate, 10/21/15) risedronate sodium (Verified Allergy, Intermediate, 10/10/18) salmeterol (Unverified Allergy, Intermediate, 10/21/15) tetracycline (Unverified Allergy, Intermediate, Rash, 10/18/15) zolpidem (Unverified Allergy, Intermediate, 10/21/15) amiodarone (Unverified Adverse Reaction, Intermediate, 10/21/15) Stomach Pain aspirin (Unverified Adverse Reaction, Intermediate, 10/21/15) Stamach upset Uncoded Allergies: ZEPHREX (Allergy, Unknown, 10/10/18) (pseudoped?) onions (Allergy, Unknown, 07/06/14) raw General: YES: Fatigue Respiratory: YES: SOB with excertion Cardiovascular: yes: Palpitations General: mild distress HEENT: Atraumatic Lungs: Clear to auscultation Heart: Other (irregularly irregular.) Abdomen: Normal bowel sounds VITALS Vital Signs Date Time Temp Pulse Resp B/P (MAP) Pulse Ox O2 Delivery O2 Flow Rate FiO2 11/12/18 13:25 108 11/12/18 12:43 111/71 11/12/18 08:05 Room Air 11/12/18 07:25 92 11/12/18 04:30 97.9 20 11/11/18 17:32 2.0 Labs Laboratory Tests Test 11/11/18 15:30 11/12/18 05:10 11/12/18 12:40 White Blood Count 7.6 x10^3/uL (4.0-11.0) Red Blood Count 5.62 x10^6/uL (3.50-5.40) Hemoglobin 14.9 g/dL (12.0-15.5) Hematocrit 45.9 % (36.0-47.0) Mean Corpuscular Volume 82 fL (79-100) Mean Corpuscular Hemoglobin 27 pg (25-35) Mean Corpuscular Hemoglobin Concent 33 g/dL (31-37) Red Cell Distribution Width 14.7 % (11.5-14.5) Platelet Count 296 x10^3/uL (140-400) Neutrophils (%) (Auto) 57 % (31-73) Lymphocytes (%) (Auto) 28 % (24-48) Monocytes (%) (Auto) 12 % (0-9) Eosinophils (%) (Auto) 2 % (0-3) Basophils (%) (Auto) 1 % (0-3) Neutrophils # (Auto) 4.3 x10^3uL (1.8-7.7) Lymphocytes # (Auto) 2.1 x10^3/uL (1.0-4.8) Monocytes # (Auto) 0.9 x10^3/uL (0.0-1.1) Eosinophils # (Auto) 0.1 x10^3/uL (0.0-0.7) Basophils # (Auto) 0.1 x10^3/uL (0.0-0.2) Sodium Level 139 mmol/L (136-145) 138 mmol/L (136-145) Potassium Level 3.8 mmol/L (3.5-5.1) 4.2 mmol/L (3.5-5.1) Chloride Level 102 mmol/L (98-107) 102 mmol/L (98-107) Carbon Dioxide Level 29 mmol/L (21-32) 29 mmol/L (21-32) Anion Gap 8 (6-14) 7 (6-14) Blood Urea Nitrogen 24 mg/dL (7-20) 23 mg/dL (7-20) Creatinine 1.1 mg/dL (0.6-1.0) 1.0 mg/dL (0.6-1.0) Estimated GFR (Cockcroft-Gault) 47.0 52.4 BUN/Creatinine Ratio 22 (6-20) Glucose Level 164 mg/dL (70-99) 118 mg/dL (70-99) Calcium Level 8.8 mg/dL (8.5-10.1) 8.8 mg/dL (8.5-10.1) Total Bilirubin 0.5 mg/dL (0.2-1.0) Aspartate Amino Transf (AST/SGOT) 23 U/L (15-37) Alanine Aminotransferase (ALT/SGPT) 21 U/L (14-59) Alkaline Phosphatase 87 U/L (46-116) Troponin I Quantitative < 0.017 ng/mL (0-0.055) Total Protein 7.2 g/dL (6.4-8.2) Albumin 3.2 g/dL (3.4-5.0) Albumin/Globulin Ratio 0.8 (1.0-1.7) Digoxin Level 1.1 ng/dL (0.9-2.0) Digoxin Last Dose Date 11/11/18 Digoxin Last Dose Time 1715 Prothrombin Time 23.7 SEC (9.4-11.4) Prothromb Time International Ratio 2.5 (0.9-1.1) Images Chest x-ray without acute changes. Assessment/Plan 1. Rapid atrial fibrillation. Patient has a history of atrial fibrillation treated with Tikosyn and metoprolol. She is also anticoagulation. Her rate is elevated and she has been treated with digoxin and higher doses of beta blockers. Would continue present treatment and monitor its effects. Patient reports an allergy to Cardizem but she is uncertain as to the precise nature of it.` 2. Hypertension. Blood pressures under reasonable control. Will continue to monitor. 3. Hyperlipidemia. Continue statins. 4. Possibly mild heart failure. Most recent echo from approximately 2 years ago showed ejection fraction of 40-45%. Will continue medications and monitor. Thank you for allowing us to participate in the care of your patient. AILYN HERNANDES MD Nov 12, 2018 14:54
[2018-11-12] MEDS ORDERED: WARFARIN 2.5 MG TABLET. PO ONE (16:00)
[2018-11-12] MEDS ORDERED: WARFARIN 3 MG TABLET. PO SCH (16:00)
[2018-11-12] MEDS ORDERED: WARFARIN 2.5 MG TABLET. PO SCH (16:00)
[2018-11-12] MEDS: DOFETILIDE 250 MCG CAPSULE PO SCH (20:20)
[2018-11-12] MEDS ORDERED: METOPROLOL SUCC 24HR ER 50 MG TAB.ER.24H. PO SCH (21:00)
[2018-11-12] MEDS ORDERED: SIMVASTATIN 10 MG TABLET PO SCH (21:00)
[2018-11-13 05:15] VITALS: BP 144/79
[2018-11-13 06:53] LABS: HEMATOCRIT 44.7 % (36.0-47.0); HEMOGLOBIN 14.4 g/dL (12.0-15.5); RED BLOOD COUNT 5.45 x10^6/uL (3.50-5.40); RED CELL DISTRIBUTION WIDTH 14.7 % (11.5-14.5); WHITE BLOOD COUNT 5.9 x10^3/uL (4.0-11.0)
[2018-11-13 07:09] LABS: ALBUMIN 2.9 g/dL (3.4-5.0); ALBUMIN/GLOBULIN RATIO 0.8 (1.0-1.7); CALCIUM 8.9 mg/dL (8.5-10.1); CREATININE 0.9 mg/dL (0.6-1.0); GFR 59.2; POTASSIUM 4.3 mmol/L (3.5-5.1); TOTAL BILIRUBIN 0.9 mg/dL (0.2-1.0); TOTAL PROTEIN 6.6 g/dL (6.4-8.2)
[2018-11-13] MEDS ORDERED: PANTOPRAZOLE 40 MG TABLET. PO SCH (07:30)
[2018-11-13] MEDS ORDERED: METOPROLOL SUCC 24HR ER 50 MG TAB.ER.24H. PO SCH (08:00)
[2018-11-13] MEDS ORDERED: NON FORMULARY ITEM (Cranberry Extract (Cranberry) 500 MG) PO SCH (08:00)
[2018-11-13] MEDS: METOPROLOL SUCC 24HR ER 50 MG TAB.ER.24H. PO SCH (08:19)
[2018-11-13] MEDS: DOFETILIDE 250 MCG CAPSULE PO SCH (08:26)
--- NOTE | 2018-11-13 08:56 | HP ---
ADMIT DATE: 11/11/2018 HISTORY OF PRESENT ILLNESS: The patient is an 88-year-old female patient from [facility] who came to the Emergency Room complaining of fast heartbeat. She is known to have atrial fibrillation, which is well controlled with beta blockers and around 1:00, she began feeling that her heart starts beating fast. She was told before to take an extra dose of her metoprolol when this happened; she did not do this, but the heart did not slow down and she took this dose at least an hour before prior to arrival. She denied any chest pain, did complain of shortness of breath. Denied any dizziness, lightheadedness, or vertigo. On arrival to the Emergency Room, her heart rate was 145 and irregularly irregular with no ST segment elevation or depression. She was treated with metoprolol. She was given 3 doses of 5 mg of metoprolol and digoxin, and was admitted for further evaluation and treatment. PAST MEDICAL HISTORY: Significant for paroxysmal atrial fibrillation, chronic back pain, recurrent urinary tract infection, hypercholesterolemia, congestive heart failure, history of deep vein thrombosis, and pulmonary embolism. She also has history of pectus excavatum. PAST SURGICAL HISTORY: Significant for thoracotomy for pectus excavatum; D and C; bilateral cataract extraction, esophagogastroduodenoscopy; colonoscopy with polypectomy. ALLERGIES: She is allergic to multiple numerous medications including PENICILLIN, ALENDRONATE, AMIODARONE, ASPIRIN, ATENOLOL, DILTIAZEM, DRONEDARONE, ERYTHROMYCIN, FLUTICASONE, INDOMETHACIN, ____ ONDANSETRON as well as IV DYE. FAMILY HISTORY: She has 8 brothers and 2 sisters; 5 brothers of myocardial infarction, cancer and CVA. She has 2 sisters younger and healthy. Her father at age of 101. Mother at the age of 64 because of breast cancer. SOCIAL HISTORY: She is a [employer], single, never . She has no children. She does not smoke, drink alcohol or recreational drugs. She usually walks without assistance or assistive devices for short distances; uses a scooter when she has to go for long distances. MEDICATIONS: She is currently on following medications: She is on Benadryl 25 mg at bedtime for insomnia, albuterol sulfate 2.5 mg 0.5 mL by nebulizer every 4 hours, warfarin ____ every other day and warfarin 5 mg every other day, Tikosyn 250 mg p.o. b.i.d., simvastatin 10 mg at bedtime, omega-3 fatty acid 1000 mg once a day. She is on metoprolol succinate 25 mg once a day. She is also on metoprolol succinate 100 mg once a day and metoprolol succinate 75 mg daily with breakfast, spironolactone 12.5 mg daily, Tylenol 500 mg at bedtime. She is on potassium chloride 10 mEq once a day, furosemide 20 mg once a day, benzonatate for Tessalon Perles 1 capsule every 6 hours as needed. Cromolyn sodium for a NasalCrom 1 spray once a day, Pataday 1 drop to both eyes once a day, Flonase 2 sprays to each nostril once a day, [place] Complete nasal spray as needed for congestion, saline nasal spray one spray to each nostril every 4 hours as needed, calcium carbonate 500 mg as needed for dyspepsia, dimenhydrinate 50 mg daily, Nexium 20 mg once a day, Preparation-H suppositories as needed rectally, multivitamin 1 tablet once a day, cranberry extract 500 mg once a day. PHYSICAL EXAMINATION: GENERAL: On arrival to the Emergency Room, the patient looked well and was clearly in no apparent respiratory distress. No pallor, jaundice or cyanosis. No lymphadenopathy, no thyromegaly. No jugular venous distention. No limb edema. VITAL SIGNS: Her heart rate was 108, blood pressure was 116/72, temperature was 98, respiratory rate was 28 and oxygen saturation was 94% on room air. HEAD, EYES: Showed normocephalic, atraumatic. NECK: Supple. HEART: Showed normal first and second heart sounds with no gallop, rub or murmur. CHEST: Clear to auscultation. No crepitation or rhonchi. ABDOMEN: Distended, soft, nontender. NEUROLOGIC: She is awake, alert, responding appropriately. Cranial nerves intact. EXTREMITIES: She moves extremities without difficulty. She ambulates without assistance or assistive devices. LABORATORY DATA: On admission showed a white cell count of 7600, hemoglobin 14.9, hematocrit 45.9, MCV 82 and platelet count 296,000 with normal manual differential. Her chemistry showed a serum sodium 139, potassium 3.8, chloride 102, bicarbonate 29, anion gap of 8, BUN 24, creatinine 1.1, estimated GFR was 47 mL per minute. Her glucose 164, calcium was 8.8. Total bilirubin, AST, ALT, alkaline phosphatase were normal. Total protein was 7.2, albumin was 3.2. Her toxic screen showed that her serum digoxin was 1.1. Her chest x-ray showed that the heart size is enlarged and stable. No evidence of pneumothorax or pleural effusion, blunting of the left costophrenic angle is again identified and there may be some volume loss of the left lung base as also appears unchanged. No evidence of infiltrate. skeleton appears intact. IMPRESSION: In summary, this is an 88-year-old female patient who was admitted with atrial fibrillation/flutter with rapid ventricular response. She was given IV metoprolol 5 mg 3 times a day and also digoxin 500 mcg once a day, given once at the Emergency Room; however, the patient continued to be symptomatic. Her heart rate continues to be in a 110-120. We will obviously resume her medication and decide the further management accordingly. CLAYTON MAYS MD DR: JENNIE/claude JOB#: [id number] / [id number]
[2018-11-13] MEDS ORDERED: OMEGA-3 FATTY ACIDS/FISH OIL 1,000 MG CAPSULE. PO SCH (09:00)
[2018-11-13] MEDS ORDERED: FLUTICASONE 50MCG/NASAL SPRAY 16GM BOTTLE. NS SCH (09:00)
[2018-11-13] MEDS ORDERED: CROMOLYN 4% NASAL SPRAY 26ML BOTTLE. NS SCH (09:00)
[2018-11-13] MEDS ORDERED: SPIRONOLACTONE 25 MG TABLET PO SCH (09:00)
[2018-11-13] MEDS ORDERED: MULTIVITAMIN with MINERAL TABLET. PO SCH (09:00)
[2018-11-13 10:31] VITALS: BP 114/70
--- NOTE | 2018-11-13 13:50 | DISCH ---
DISCHARGE ORDERS CONDITION AT DISCHARGE: Stable Code Status: Full SNF STAY <30 DAYS: No POST DISCHARGE ORDERS: ACTIVITY ORDERS: No restrictions CHECKS AFTER DISCHARGE: CHECKS AFTER DISCHARGE: Check blood press - daily, Check your Temp as needed, Weigh Yourself Daily TREATMENT/EQUIPMENT ORDERS: ADAPTIVE EQUIPMENT NEEDED: Cane DISCHARGE MEDICATIONS: Home Meds Reported Medications Metoprolol Succinate (METOPROLOL SUCCINATE ( XL )) 50 Mg Tab.er.24h, 75 MG PO DAILYWBKFT for FOR HYPERTENSION, #30 TAB 0 Refills 11/12/18 Metoprolol Succinate (METOPROLOL SUCCINATE ( XL )) 100 Mg Tab.er.24h, 1 TAB PO HS for afib, #30 TAB 5 Refills 11/12/18 Multivitamin (MULTIVITAMINS) 1 Each Tablet, 1 TAB PO DAILY for supp, #90 TAB 3 Refills 11/12/18 Dimenhydrinate (DIMENHYDRINATE) 50 Mg Tablet, 50 MG PO PRN DAILY for ppx, TAB 11/12/18 Cranberry Extract (Cranberry) 500 Mg Tablet, 500 MG PO DAILYWBKFT for supp, TAB 11/12/18 Warfarin Sodium (WARFARIN SODIUM) 5 Mg Tablet, 5 MG PO qod for ppx, TAB 11/12/18 Warfarin Sodium (WARFARIN SODIUM) 5 Mg Tablet, 5.5 MG PO QODAY for ppx, TAB 11/12/18 Cranberry Extract (CRANBERRY) 200 Mg Capsule, 84 MG PO HS for supp, CAP 11/12/18 Fluticasone Propionate (Flonase Allergy Relief) 9.9 Ml [place].susp, 2 SPRAYS NS DAILY for n, BOTTLE 11/12/18 Metoprolol Succinate (METOPROLOL SUCCINATE ( XL )) 25 Mg Tab.er.24h, 1 TAB PO PRN DAILY for afib, #30 TAB 5 Refills 11/12/18 Albuterol Sulfate (ALBUTEROL SULFATE CONC NEB SOLN) 2.5 Mg/0.5 Ml Vial.neb, 1 VIAL NEB PRN PRN for SHORTNESS OF BREATH, #120 VIAL 5 Refills 11/12/18 [place]-3 Fatty Acids/Fish Oil (FISH OIL 1,000 MG SOFTGEL) 1 Each Capsule, 1 EACH PO DAILY for supp, CAP 11/12/18 Spironolactone (SPIRONOLACTONE) 25 Mg Tablet, 12.5 MG PO DAILY for HF, TAB 11/12/18 Esomeprazole Magnesium (NEXIUM CAPSULE) 20 Mg Capsule.dr, 1 CAP PO DAILY for GERD, #30 CAP 2 Refills 11/12/18 Furosemide (FUROSEMIDE) 20 Mg Tablet, 1 TAB PO PRN DAILY for weight gain, #90 TAB 1 Refill 11/12/18 Potassium Chloride (POTASSIUM CHLORIDE) 10 Meq Tablet.er, 10 MEQ PO PRN DAILY PRN for hypok, TAB 11/12/18 Dofetilide (TIKOSYN) 250 Mcg Capsule, 250 MCG PO BID for HF, CAP 11/12/18 Sodium Chloride (SALINE NASAL SPRAY) 30 Ml [place], 1 SPR NS PRN PRN for COUGH, # 60 ML 11/12/18 Benzonatate (TESSALON PERLE) 100 Mg Capsule, 1 CAP PO PRN Q6HRS PRN for COUGH, # 21 CAP 11/12/18 [cold eeze lozenge] No Conflict Check, PRN for COUGH 07/07/14 Simvastatin (SIMVASTATIN) 10 Mg Tablet, 10 MG PO HS for FOR CHOLESTEROL, #30 TAB 0 Refills 07/07/14 Olopatadine Hcl (PATADAY) 2.5 Ml Drops, 2.5 ML OP PRN for DRY EYE 07/07/14 Salt Irrigation Solution No.1 (OCEAN COMPLETE) 177 Ml Aer.w.adap, 177 ML NS PRN for CONGESTION 07/07/14 [benadryl 1% cream] No Conflict Check 07/07/14 Phenylephrine Hcl/[place] Butter (PREPARATION H SUPPOSITORY) 1 Each Supp.rect, 1 EACH RC, SUPP.RECT 07/07/14 Acetaminophen (ACETAMINOPHEN) 500 Mg Tablet, 500 MG PO HS PRN for INSOMNIA 07/07/14 Cromolyn Sodium (NASALCROM) 26 Ml [place].pump, 26 ML NS 07/07/14 Diphenhydramine Hcl (BENADRYL) 25 Mg Capsule, 25 MG PO PRN for INSOMNIA 07/07/14 Calcium Carbonate (TUMS X-STR) 300 Mg Tab.chew, 500 MG PO PRN for DYSPEPSIA, TAB.CHEW 07/07/14 Discontinued Reported Medications Calcium Carbonate (TUMS X-STR) 300 Mg Tab.chew, 500 MG PO PRN PRN for INDIGESTION, TAB.CHEW 4/6/19 Simvastatin (SIMVASTATIN) 10 Mg Tablet, 1 TAB PO QHS for HLD, #30 TAB 5 Refills 11/12/18 Flecainide Acetate (FLECAINIDE ACETATE) 150 Mg Tablet, 150 MG PO BID 10/18/15 Fish Oil/Borage/Flax/Om3,6,9#1 ([place] 3-6-9 1,200 mg Softgel) 1,200 Mg Capsule, 1200 MG PO QODAY, CAP 0 Refills 09/25/15 Esomeprazole Magnesium (NEXIUM CAPSULE) 20 Mg Capsule.dr, 40 CAP PO DAILY, #30 CAP 2 Refills 09/25/15 Fluticasone Propionate (FLONASE) 16 Gm [place].susp, 16 GM NS HS 07/07/14 Warfarin Sodium (WARFARIN SODIUM) 1 Mg Tablet, 1 MG PO QODAY 07/07/14 Warfarin Sodium (COUMADIN) 6 Mg Tablet, 6.5 MG PO NOON 07/07/14 Metoprolol Tartrate (METOPROLOL TARTRATE) 25 Mg Tablet, 25 MG PO HS for FOR HYPERTENSION, #30 TAB 0 Refills 07/07/14 Cranberry Conc/Ascorbic Acid (CRANBERRY 12,600 MG SOFTGEL) 1 Each Capsule, 1 EACH PO DAILY, 0 Refills 07/07/14 Multivitamin (MULTI-DAY VITAMINS) 1 Each Tablet, 1 EACH PO DAILY 07/07/14 Psyllium Seed (METAMUCIL) 425 Gm Powder, 3.4 GM PO PRN for CONSTIPATION 07/07/14 CLAYTON MAYS MD Nov 13, 2018 13:50
--- NOTE | 2018-11-13 14:58 | PDOC ---
SUBJECTIVE: Patient seen and examined The patient looks and feels better today. OBJECTIVE: Problems: Problems Medical Problems: (1) Atrial fibrillation with RVR Status: Acute Vital Signs: Vital Signs Date Time Temp Pulse Resp B/P (MAP) Pulse Ox O2 Delivery O2 Flow Rate FiO2 11/13/18 12:00 Room Air 11/13/18 10:31 98.3 72 20 114/70 (85) 93 11/11/18 17:32 2.0 I & O Intake and Output 11/13/18 07:00 Intake Total 660 ml Balance 660 ml Intake Oral 660 ml # Voids 4 Labs: Laboratory Tests Test 11/11/18 15:30 11/12/18 05:10 11/12/18 12:40 11/13/18 06:00 White Blood Count 7.6 x10^3/uL (4.0-11.0) 5.9 x10^3/uL (4.0-11.0) Red Blood Count 5.62 x10^6/uL (3.50-5.40) 5.45 x10^6/uL (3.50-5.40) Hemoglobin 14.9 g/dL (12.0-15.5) 14.4 g/dL (12.0-15.5) Hematocrit 45.9 % (36.0-47.0) 44.7 % (36.0-47.0) Mean Corpuscular Volume 82 fL (79-100) 82 fL (79-100) Mean Corpuscular Hemoglobin 27 pg (25-35) 27 pg (25-35) Mean Corpuscular Hemoglobin Concent 33 g/dL (31-37) 32 g/dL (31-37) Red Cell Distribution Width 14.7 % (11.5-14.5) 14.7 % (11.5-14.5) Platelet Count 296 x10^3/uL (140-400) 244 x10^3/uL (140-400) Neutrophils (%) (Auto) 57 % (31-73) Lymphocytes (%) (Auto) 28 % (24-48) Monocytes (%) (Auto) 12 % (0-9) Eosinophils (%) (Auto) 2 % (0-3) Basophils (%) (Auto) 1 % (0-3) Neutrophils # (Auto) 4.3 x10^3uL (1.8-7.7) Lymphocytes # (Auto) 2.1 x10^3/uL (1.0-4.8) Monocytes # (Auto) 0.9 x10^3/uL (0.0-1.1) Eosinophils # (Auto) 0.1 x10^3/uL (0.0-0.7) Basophils # (Auto) 0.1 x10^3/uL (0.0-0.2) Sodium Level 139 mmol/L (136-145) 138 mmol/L (136-145) 138 mmol/L (136-145) Potassium Level 3.8 mmol/L (3.5-5.1) 4.2 mmol/L (3.5-5.1) 4.3 mmol/L (3.5-5.1) Chloride Level 102 mmol/L (98-107) 102 mmol/L (98-107) 103 mmol/L (98-107) Carbon Dioxide Level 29 mmol/L (21-32) 29 mmol/L (21-32) 29 mmol/L (21-32) Anion Gap 8 (6-14) 7 (6-14) 6 (6-14) Blood Urea Nitrogen 24 mg/dL (7-20) 23 mg/dL (7-20) 21 mg/dL (7-20) Creatinine 1.1 mg/dL (0.6-1.0) 1.0 mg/dL (0.6-1.0) 0.9 mg/dL (0.6-1.0) Estimated GFR (Cockcroft-Gault) 47.0 52.4 59.2 BUN/Creatinine Ratio 22 (6-20) 23 (6-20) Glucose Level 164 mg/dL (70-99) 118 mg/dL (70-99) 87 mg/dL (70-99) Calcium Level 8.8 mg/dL (8.5-10.1) 8.8 mg/dL (8.5-10.1) 8.9 mg/dL (8.5-10.1) Total Bilirubin 0.5 mg/dL (0.2-1.0) 0.9 mg/dL (0.2-1.0) Aspartate Amino Transf (AST/SGOT) 23 U/L (15-37) 24 U/L (15-37) Alanine Aminotransferase (ALT/SGPT) 21 U/L (14-59) 18 U/L (14-59) Alkaline Phosphatase 87 U/L (46-116) 79 U/L (46-116) Troponin I Quantitative < 0.017 ng/mL (0-0.055) Total Protein 7.2 g/dL (6.4-8.2) 6.6 g/dL (6.4-8.2) Albumin 3.2 g/dL (3.4-5.0) 2.9 g/dL (3.4-5.0) Albumin/Globulin Ratio 0.8 (1.0-1.7) 0.8 (1.0-1.7) Digoxin Level 1.1 ng/dL (0.9-2.0) Digoxin Last Dose Date 11/11/18 Digoxin Last Dose Time 1715 Prothrombin Time 23.7 SEC (9.4-11.4) 25.2 SEC (9.4-11.4) Prothromb Time International Ratio 2.5 (0.9-1.1) 2.6 (0.9-1.1) Thyroid Stimulating Hormone (TSH) 2.268 uIU/mL (0.358-3.740) Physical Exam: Chest. Minimally decreased breath sounds. CV. Irregularly irregular. Abdomen. Soft. ASSESSMENT: 1. Rapid atrial fibrillation. Patient has a history of atrial fibrillation treated with Tikosyn and metoprolol. She is also anticoagulation. Her rate is significantly improved today and will continue on present medications. 2. Hypertension. Blood pressures under reasonable control. Will continue to monitor. 3. Hyperlipidemia. Continue statins. 4. Possibly mild heart failure. Improved. Most recent echo from approximately 2 years ago showed ejection fraction of 40-45%. Will continue medications and monitor. AILYN HERNANDES MD Nov 13, 2018 14:58
--- NOTE | 2018-11-13 15:09 | DS ---
DATE OF DISCHARGE: 11/13/2018 HISTORY OF PRESENT ILLNESS: The patient is an 88-year-old female patient from [facility], who came to the Emergency Room, complaining of fast heartbeat. She was found to be in atrial fibrillation with rapid ventricular response. It is normally well controlled with beta-blockers and Tikosyn. She is on Tikosyn 250 mg twice a day, metoprolol 75 mg in the morning, and Toprol-XL 100 mg at bedtime, and she can take an extra 25 mg as needed, when her heart rate accelerates. She is also well anticoagulated on Coumadin. She came to the Emergency Room after taking her extra metoprolol, without much improvement, as he continued to have atrial fibrillation with rapid ventricular response. She was given 3 doses of metoprolol 5 mg IV and was also given digoxin 500 mcg once, and her heart rate has been steady over the last 24 hours, in the 70s-80s. The patient denied any palpitation; denied any chest pain, shortness of breath, orthopnea, or paroxysmal nocturnal dyspnea, and as her heart rate remained stable, a decision was made to discharge her back to [facility], to continue with her current medication. PHYSICAL EXAMINATION: GENERAL: When I saw her this afternoon, she looked well and was clearly in no apparent respiratory distress. No pallor, jaundice, cyanosis, or thyromegaly. No jugular venous distension. No limb edema. VITAL SIGNS: Her heart rate was 74, blood pressure was 125/59, temperature was 97.6, respiratory rate was 20, and oxygen saturation was 94%. HEAD, EYES, EARS, NOSE, AND THROAT: Normocephalic, atraumatic. NECK: Supple. HEART: Showed normal first and second heart sounds. No gallop, rub, or murmur. CHEST: Clear to auscultation. No crepitation or rhonchi. ABDOMEN: Distended, soft, and nontender. NEUROLOGICAL: She was awake and alert, responding appropriately. Cranial nerves intact. She moves extremities without difficulty. She ambulates without any assistance or assistive devices for short distances. She uses a scooter for long distances. INPUT AND OUTPUT: Her intake over the last 24 hours was 540; no output was recorded. LABORATORY DATA: As of this morning showed a white cell count of 5900, hemoglobin of 14.4, hematocrit of 44.7, MCV of 82, and platelet count of 254,000. Her prothrombin time was 25.2, INR of 2.6. Her chemistry showed a serum sodium of 138, potassium of 4.3, chloride 103, bicarbonate 29, anion gap of 6, BUN 21, creatinine 0.9, and estimated GFR was 59 mL per minute. Her glucose was 87, calcium was 8.9. Total bilirubin, AST, ALT, and alkaline phosphatase were normal. Total protein was 6.6, albumin 2.9. Her TSH was 2.68. Her serum digoxin was 1.1. DISCHARGE MEDICATIONS: The patient was discharged to [facility] to continue on acetaminophen 500 mg at bedtime, as needed for insomnia; albuterol sulfate 2.5 mg in 0.5 mL via nebulizer, 4 times a day as needed; benzonatate, Tessalon Perles 100 mg every 6 hours; calcium carbonate 500 mg as needed for dyspepsia; cranberry extract 84 mg; cromolyn sodium, NasalCrom 1 spray to each nostril once a day; dimenhydrinate 50 mg p.o. p.r.n. daily; diphenhydramine 25 mg at bedtime; she is on Tikosyn 250 mg twice a day; Nexium 20 mg once a day; fluticasone, Flonase 2 sprays to each nostril, once a day; furosemide 20 mg daily; metoprolol succinate 25 mg once a day, metoprolol succinate 100 mg at bedtime, and metoprolol succinate 75 mg in the morning; multivitamin 1 tablet once a day; olopatadine 2.5 mg to both eyes as needed; omega-3 fatty acid 1 capsule daily; phenylephrine/cocoa butter for Preparation-H suppository as needed; potassium chloride 10 mEq daily; salt irrigation solution, [place] Complete 177 mL as needed for congestion; simvastatin 10 mg at bedtime; sodium chloride for saline nasal spray, one spray to each nostril as needed; spironolactone 12.5 mg daily; warfarin 5.5 mg every other day; warfarin 5 mg every other day; and she will be discharged also on digoxin 125 mcg daily. FINAL DISCHARGE DIAGNOSES: 1. Paroxysmal atrial fibrillation with rapid ventricular response, rate is much better controlled with the addition of digoxin. She is well anticoagulated. 2. Hypertension, well controlled. 3. Hyperlipidemia, on statins, questionable mild systolic congestive heart failure, seems to be clinically well compensated. CLAYTON MAYS MD DR: JENNIE/claude JOB#: [id number] / [id number]
[2018-11-13] MEDS ORDERED: WARFARIN 5 MG TABLET. PO SCH (16:00)
== END 2018-11-13 15:02 | DRG 309 ==
LOC: ER 15:13 → ICU 17:43 → 1 SOUTH 11-13 07:16
PROVIDERS: ADMIT Internal Medicine; ATTEND Internal Medicine
DX: I48.0 Paroxysmal atrial fibrillation (principal); I13.0 Hypertensive heart and chronic kidney disease with heart failure and stage 1 through stage 4 chronic kidney disease, or unspecified chronic kidney disease; I50.20 Unspecified systolic (congestive) heart failure; E78.00 Pure hypercholesterolemia, unspecified; I48.92 Unspecified atrial flutter; E78.5 Hyperlipidemia, unspecified; I50.9 Heart failure, unspecified; K21.9 Gastro-esophageal reflux disease without esophagitis; G89.29 Other chronic pain; N18.9 Chronic kidney disease, unspecified; Z79.01 Long term (current) use of anticoagulants; Z80.3 Family history of malignant neoplasm of breast; Z82.3 Family history of stroke; Z82.49 Family history of ischemic heart disease and other diseases of the circulatory system; Z86.711 Personal history of pulmonary embolism; Z86.718 Personal history of other venous thrombosis and embolism; Z98.41 Cataract extraction status, right eye; Z87.440 Personal history of urinary (tract) infections; Z98.42 Cataract extraction status, left eye; Z79.899 Other long term (current) drug therapy; Z88.6 Allergy status to analgesic agent; Z88.1 Allergy status to other antibiotic agents; Z88.0 Allergy status to penicillin; Z88.2 Allergy status to sulfonamides; Z88.8 Allergy status to other drugs, medicaments and biological substances
CPT/HCPCS: 36415; 71045; 80048; 80053; 80162; 84443; 84484; 85025; 85027; 85610; 87641; 96374; J3490; 99285-25

== ENCOUNTER → 2019-09-06 | Outpatient (CLI) | payer MEDICARE, OTHER ==
[~2019-09-06] MED LIST changes: +CRAN200C2 PO; +CRAN500T2 PO; +DIME50TA10 PO; +DOFE250C PO; +FLUT9.9S NS; +FURO20TA3 PO; +MECL-75 PO; -MECL25TA3 PO; +METO-239 PO; +METO-247 PO; +METO50TA29 PO; +MULT1TAB52 PO; -NITR0.4T SL; +NITR0.4T24 SL; +OMEG1CAP50 PO; +POTA10TA10 PO; +SIMV10TA15 PO; -SIMV10TA3 PO; +SODI30SP NS; +SPIR25TA5 PO; +WARF-31 PO
--- NOTE | 2019-09-06 10:10 | RAD ---
3 views of the left foot without comparison for foot pain. FINDINGS: There is no discernible fracture or acute osseous abnormality. Joints and soft tissues are grossly unremarkable. Vascular calcifications are seen in the midfoot. No radiopaque foreign bodies. There is a very small calcaneal bone spur. IMPRESSION: 1. No acute osseous abnormality of the left foot. Electronically signed by: Werner Murray MD (09/06/2019 10:07 AM) [facility]
== END | disposition home or self-care (01) ==
LOC: DXRAD 08:55
PROVIDERS: ATTEND Specialist
DX: M77.32 Calcaneal spur, left foot (principal)
CPT/HCPCS: 73630

== ENCOUNTER 2020-01-26 19:33 | Emergency (ER) | payer MEDICARE, OTHER ==
[~2020-01-26] VITALS: Ht 162.6 cm; Wt 80.4 kg
[~2020-01-26 19:33] MED LIST changes: +MULT-445 PO; -MULT1TAB52 PO; -OLOP2.5D OP; +OLOP2.5D12 OP
--- NOTE | 2020-01-26 20:53 | PHYS DOC ---
Past History Past Medical History: A-Fib, CHF, DVT, GERD, High Cholesterol, Other Past Surgical History: Other Alcohol Use: None Drug Use: None General Adult EDM: Chief Complaint: HIP PAIN HPI: HPI: ".. [facility] I was getting out of shower ... and slipped ..landed hard on this Rt shoulder...." Patient is a 89 year old female who presents with above hx of slip and fall wiith injury to Rt shoulder and claicle.. Has large hematoma at medial portion of clavicle. Distal neurovascular intact in right hand. Patient is right-hand dominant. Cap refill is equal to left hand. Patient states she only had a slip and fall. No history of dizziness before or dysrhythmia before the fall. Patient does have a history of A. fib. And CHF. Patient is on anticoagulants for her A. fib. Patient only follows up with Dr. Panchal. Review of Systems: Review of Systems: Constitutional: Denies fever or chills Eyes: Denies change in visual acuity HENT: Denies nasal congestion or sore throat Respiratory: Denies cough or shortness of breath Cardiovascular: Denies chest pain or edema GI: Denies abdominal pain, nausea, vomiting, bloody stools or diarrhea : Denies dysuria Musculoskeletal: Rt. shoulder and clavicle pain Integument: Denies rash Neurologic: Denies headache, focal weakness or sensory changes Endocrine: Denies polyuria or polydipsia Lymphatic: Denies swollen glands Psychiatric: Denies depression or anxiety Heart Score: HEART Score for Chest Pain: HEART Score for Chest Pain Response (Comments) Value History Moderately Suspicious 1 ECG Nonspecific Repolarizatio 1 Age > 65 2 Risk Factors 1 or 2 Risk Factors 1 Troponin < Normal Limit 0 Total 5 Risk Factors: Risk Factors: DM, Current or recent (<one month) smoker, HTN, HLP, family history of CAD, obesity. Risk Scores: Score 0 - 3: 2.5% MACE over next 6 weeks - Discharge Home Score 4 - 6: 20.3% MACE over next 6 weeks - Admit for Clinical Observation Score 7 - 10: 72.7% MACE over next 6 weeks - Early Invasive Strategies Family History: Family History: Noncontributory Current Medications: Current Meds: See nursing for home meds Allergies: Allergies: Allergies Coded Allergies Type Severity Reaction Last Updated Verified Penicillins Allergy Severe Hives 10/18/15 Yes Iodinated Contrast- Oral and IV Dye Allergy Intermediate Hives 10/18/15 Yes Sulfa (Sulfonamide Antibiotics) Allergy Intermediate 10/10/18 Yes alendronate sodium Allergy Intermediate 10/21/15 No atenolol Allergy Intermediate 07/06/14 No diltiazem Allergy Intermediate Rash 10/18/15 Yes dronedarone Allergy Intermediate 10/21/15 No erythromycin base Allergy Intermediate Rash 10/18/15 No fluticasone Allergy Intermediate 10/21/15 No hydrochlorothiazide Allergy Intermediate 10/10/18 Yes indomethacin Allergy Intermediate 10/21/15 No lansoprazole Allergy Intermediate 10/10/18 Yes nebivolol Allergy Intermediate 07/06/14 No ondansetron Allergy Intermediate 10/21/15 No risedronate sodium Allergy Intermediate 10/10/18 Yes salmeterol Allergy Intermediate 10/21/15 No tetracycline Allergy Intermediate Rash 10/18/15 No zolpidem Allergy Intermediate 10/21/15 No amiodarone Adverse Reaction Intermediate 10/21/15 No aspirin Adverse Reaction Intermediate 10/21/15 No Uncoded Allergies Type Severity Reaction Last Updated Verified [id number] Allergy Unknown 10/10/18 onions Allergy Unknown 07/06/14 Physical Exam: PE: Constitutional: Moderate acute distress, non-toxic appearance. [] HENT: Normocephalic, atraumatic, bilateral external ears normal, oropharynx moist, no oral exudates, nose normal. [] Eyes: PERRLA, EOMI, conjunctiva normal, no discharge. [] Neck: Normal range of motion, no tenderness, supple, no stridor. [] Cardiovascular: Irregular heart rate and irregular rhythm, no murmur [] PMI to the left. A. fib on monitor Lungs & Thorax: Bilateral breath sounds equal at apex with basilar crackles on auscultation [] Has large hematoma medial side of right clavicle. Abdomen: Bowel sounds normal, soft, no tenderness, no masses, no pulsatile masses. [] Skin: Warm, dry, no erythema, no rash. [] Back: No tenderness, no CVA tenderness. [] Extremities: Right shoulder and clavicle tenderness, no cyanosis, no clubbing, ROM intact, bilateral ankle edema. [] Neurologic: Alert and oriented X 3, moves extremities on request but is guarded with right shoulder because of pain, distal sensory, no focal deficits noted. [] Psychologic: Affect anxious, judgement normal, mood normal. [] EKG: EKG: My interpretation EKG shows a A. fib with junctional conduction. Ventricle rate at 93. Leftward axis. Radiology/Procedures: Radiology/Procedures: [address] [address] IMAGING REPORT Signed PATIENT: RANCHO REMYUNT: [id number] : 1930 LOCATION: ER AGE: 89 SEX: F EXAM STATUS: REG ER ORD. PHYSICIAN: LUIS ANTONIO ISAACS MD REASON: pain, fall, right shoulder/clavicle and humerus pain PROCEDURE: HUMERUS RIGHT HUMERUS RIGHT, SHOULDER 2+V RIGHT History: Reason: pain, fall, right shoulder/clavicle and humerus pain / Spl. Instructions: / History: Technique: 3 views right shoulder and 2 views right humerus Comparison: None. Findings: Normal alignment of the right glenohumeral and acromioclavicular joints. Mild right acromioclavicular DJD. Acute right medial clavicular fracture. Impression: 1. Acute mildly displaced right medial clavicular fracture. Electronically signed by: Pool Bone DO (01/26/2020 9:56 PM) [facility] DICTATED AND SIGNED BY: POOL BONE DO DATE: 01/26/202155 CC: LUIS ANTONIO ISAACS MD; DANUTA PANCHAL MD ~ [address] [address] IMAGING REPORT Signed PATIENT: RANCHO REMYUNT: [id number] : 1930 LOCATION: ER AGE: 89 SEX: F EXAM STATUS: REG ER ORD. PHYSICIAN: LUIS ANTONIO ISAACS MD REASON: pain, fall, right shoulder/clavicle and humerus pain PROCEDURE: PORTABLE CHEST 1V PORTABLE CHEST 1V History: Reason: pain, fall, right shoulder/clavicle and humerus pain / Spl. Instructions: / History: Comparison: November 11, 2018 Findings: Small left pleural effusion, unchanged. Left basilar opacity, unchanged. Sclerotic lesion within the left distal clavicle, unchanged. Acute mildly displaced right medial clavicular fracture. Impression: 1. Acute mildly displaced right medial clavicular fracture. 2. Small left pleural effusion with adjacent opacity, unchanged. Electronically signed by: Pool Bone DO (01/26/2020 9:54 PM) [facility] DICTATED AND SIGNED BY: POOL BONE DO DATE: 01/26/202153 CC: LUIS ANTONIO ISAACS MD; DANUTA PANCHAL MD ~ Course & Med Decision Making: Course & Med Decision Making Pertinent Labs and Imaging studies reviewed. (See chart for details) Discussed with patient her current labs, patient [facility] Patient to review current labs with her primary care Dr. Panchal. Distal neurovascular intact after application of sling. Patient is ice packs as needed patient may take Percocet up to 4 times a day for marked pain. Pt. declines admission for observation. Pt encourage to return if any concerns. Impression; 1. Slip and Fall 2. Fractured clavicle 3. Large hematoma 4. Elevated d-dimer 2.70 5. INR is 2.5 6. BNP 2444 7. Albumin 3.1 [] Dragon Disclaimer: Dragon Disclaimer: This electronic medical record was generated, in whole or in part, using a voice recognition dictation system. Departure Departure: Disposition: 01 HOME/RESIDENCE PRIOR TO ADM Condition: STABLE Referrals: DANUTA PANCHAL MD (PCP) Scripts Oxycodone Hcl/Acetaminophen (PERCOCET 5-325 MG TABLET ) 1 Each Tablet 1 TAB PO PRN Q6HRS PRN for PAIN, #30 TAB Prov: LUIS ANTONIO ISAACS MD 01/26/20 Justification of Admission: Justification of Admission: Justification of Admission Dx: N/A Dragon Disclaimer This chart was dictated in whole or in part using Voice Recognition software in a busy, high-work load, and often noisy Emergency Department environment. It may contain unintended and wholly unrecognized errors or omissions. Dragon Disclaimer This chart was dictated in whole or in part using Voice Recognition software in a busy, high-work load, and often noisy Emergency Department environment. It may contain unintended and wholly unrecognized errors or omissions. LUIS ANTONIO ISAACS MD Jan 26, 2020 20:53
[2020-01-26 21:23] LABS: BASO % 0 % (0-3); EOS # 0.1 x10^3/uL (0.0-0.7); EOS % 1 % (0-3); HEMATOCRIT 43.3 % (36.0-47.0); HEMOGLOBIN 14.2 g/dL (12.0-15.5); LYMPH # 1.6 x10^3/uL (1.0-4.8); LYMPH % 18 % (24-48); MEAN CORPUSCULAR HEMOGLOBIN 28 pg (25-35); MEAN CORPUSCULAR HGB CONC 33 g/dL (31-37); MEAN CORPUSCULAR VOLUME 84 fL (79-100); MONO % 11 % (0-9); NEUT # 6.6 x10^3uL (1.8-7.7); NEUT % 71 % (31-73); PLATELET COUNT 255 x10^3/uL (140-400); RED BLOOD COUNT 5.13 x10^6/uL (3.50-5.40); RED CELL DISTRIBUTION WIDTH 14.6 % (11.5-14.5); WHITE BLOOD COUNT 9.4 x10^3/uL (4.0-11.0)
[2020-01-26 21:27] LABS: CALCIUM 8.9 mg/dL (8.5-10.1); GFR 52.3; POTASSIUM 4.5 mmol/L (3.5-5.1)
[2020-01-26] MEDS ORDERED: MORPHINE SULFATE 10 MG/ML SYRINGE. SQ ONE (21:30)
[2020-01-26] MEDS ORDERED: IV RINGERS SOLUTION,LACTATED 1,000 ML IV SCH (21:30)
[2020-01-26 21:40] LABS: ALBUMIN 3.1 g/dL (3.4-5.0); DIRECT BILIRUBIN 0.3 mg/dL (0.0-0.2); MAGNESIUM 1.8 mg/dL (1.8-2.4); TOTAL BILIRUBIN 0.6 mg/dL (0.2-1.0); TOTAL PROTEIN 6.8 g/dL (6.4-8.2)
--- NOTE | 2020-01-26 21:57 | RAD ---
PORTABLE CHEST 1V History: Reason: pain, fall, right shoulder/clavicle and humerus pain / Spl. Instructions: / History: Comparison: November 11, 2018 Findings: Small left pleural effusion, unchanged. Left basilar opacity, unchanged. Sclerotic lesion within the left distal clavicle, unchanged. Acute mildly displaced right medial clavicular fracture. Impression: 1. Acute mildly displaced right medial clavicular fracture. 2. Small left pleural effusion with adjacent opacity, unchanged. Electronically signed by: Pool Bone DO (01/26/2020 9:54 PM) [facility]
--- NOTE | 2020-01-26 21:59 | RAD ---
HUMERUS RIGHT, SHOULDER 2+V RIGHT History: Reason: pain, fall, right shoulder/clavicle and humerus pain / Spl. Instructions: / History: Technique: 3 views right shoulder and 2 views right humerus Comparison: None. Findings: Normal alignment of the right glenohumeral and acromioclavicular joints. Mild right acromioclavicular DJD. Acute right medial clavicular fracture. Impression: 1. Acute mildly displaced right medial clavicular fracture. Electronically signed by: Pool Bone DO (01/26/2020 9:56 PM) [facility]
[2020-01-26] MEDS ORDERED: OXYC1TAB15 PO (22:31)
[2020-01-26 22:36] VITALS: BP 164/70
[2020-01-26 22:43] LABS: AMPHETAMINE/METHAMPHETAMINE NEG (NEG); BARBITURATES NEG (NEG); BENZODIAZEPINES NEG (NEG); CANNABINOIDS NEG (NEG); COCAINE NEG (NEG); METHADONE NEG (NEG); OPIATES POS (NEG); PHENCYCLIDINE NEG (NEG)
[2020-01-26 22:44] LABS: BACTERIA,URINE FEW /HPF (0-FEW); BILIRUBIN,URINE NEG (NEG); CLARITY,URINE CLEAR; COLOR,URINE YELLOW; GLUCOSE,URINE NEG (NEG); NITRITE,URINE NEG (NEG); RBC,URINE OCC /HPF (0-2); SQUAMOUS EPITHELIAL CELL,UR FEW /LPF; UROBILINOGEN,URINE 0.2 mg/dL (0.2 mg/dL)
--- NOTE | 2020-01-27 01:06 | EKG ---
[address] [address] Test Date: 2020-01-26 Test Time: 20:56:40 Pat Name: RANCHO REMY Department: Room: Gender: F Wafer Mounter: : 1930 Requested By: LUIS ANTONIO ISAACS Order Number: [id number] Reading MD: Measurements Intervals [place] Rate: 93 P: OK: QRS: -5 QRSD: 84 T: 45 QT: 352 QTc: 440 Interpretive Statements ACCELERATED JUNCTIONAL RHYTHM LEFTWARD AXIS ABNORMAL ECG RI6.02 No previous ECG available for comparison
== END 2020-01-26 22:45 | disposition home or self-care (01) ==
LOC: ER 19:33
DX: S42.011A Anterior displaced fracture of sternal end of right clavicle, initial encounter for closed fracture (principal); R79.1 Abnormal coagulation profile; R79.89 Other specified abnormal findings of blood chemistry; I48.91 Unspecified atrial fibrillation; I50.9 Heart failure, unspecified; K21.9 Gastro-esophageal reflux disease without esophagitis; E78.00 Pure hypercholesterolemia, unspecified; Z86.718 Personal history of other venous thrombosis and embolism; Z88.0 Allergy status to penicillin; Z88.2 Allergy status to sulfonamides; Z88.1 Allergy status to other antibiotic agents; Z91.041 Radiographic dye allergy status; Z88.6 Allergy status to analgesic agent; Z91.018 Allergy to other foods; W01.0XXA Fall on same level from slipping, tripping and stumbling without subsequent striking against object, initial encounter; Y93.89 Activity, other specified; Y92.89 Other specified places as the place of occurrence of the external cause; Y99.8 Other external cause status
CPT/HCPCS: 36415; 71045; 73030; 73060; 80048; 80076; 80307; 81001; 82550; 83690; 83735; 83880; 84443; 84484; 85025; 85379; 85610; 85730; 87086; 93005; 96372; 99285; J2270; J7120; P9612

== ENCOUNTER → 2020-02-28 | Outpatient (CLI) | payer MEDICARE, OTHER ==
[~2020-02-28] MED LIST changes: +OXYC1TAB15 PO
--- NOTE | 2020-02-28 08:32 | RAD ---
CLAVICLE RIGHT 02/28/2020 12:00 AM INDICATION: Clavicular pain COMPARISON: None available. TECHNIQUE: 2 views of the right clavicle are provided. FINDINGS/ IMPRESSION: 1. No acute fracture or dislocation of the right clavicle. 2. Uncovertebral joint is intact with mild superior projecting osteophytosis compatible with mild osteoarthrosis. 3. Metallic densities project over the right suprahilar region and area of scarring. Tracheobronchial calcifications are present. Atherosclerotic changes of the thoracic aorta are noted. Electronically signed by: Radha Patel MD (02/28/2020 8:30 AM) [id number]
== END | disposition home or self-care (01) ==
LOC: DXRAD 07:57
PROVIDERS: ATTEND Specialist
DX: S42.021A Displaced fracture of shaft of right clavicle, initial encounter for closed fracture (principal); M25.80 Other specified joint disorders, unspecified joint; I70.0 Atherosclerosis of aorta; X58.XXXA Exposure to other specified factors, initial encounter; Y93.89 Activity, other specified; Y92.89 Other specified places as the place of occurrence of the external cause; Y99.8 Other external cause status
CPT/HCPCS: 73000